=== PATIENT | female | born 1980 | race Caucasian/White ===

== ENCOUNTER 2018-01-10 16:49 | Observation (INO) | payer OTHER ==
[~2018-01-10] VITALS: Ht 167.6 cm; Wt 88.0 kg
[2018-01-10 18:16] LABS: BASOPHILS ABSOLUTE AUTO 0.02 K/mm3 (0.00-0.23); BASOPHILS PERCENT AUTO 0 % (0-2); EOSINOPHILS ABSOLUTE AUTO 0.01 K/mm3 (0.00-0.68); EOSINOPHILS PERCENT AUTO 0 % (0-6); Hematocrit 42.1 % (33.0-51.0); Hemoglobin 13.7 g/dL (11.5-16.0); IMMATURE GRAN PERCENT AUTO 1 % (0-1); LYMPHOCYTES ABSOLUTE AUTO 2.46 K/mm3 (0.84-5.20); LYMPHOCYTES PERCENT AUTO 12 % (21-46); MONOCYTES ABSOLUTE AUTO 0.79 K/mm3 (0.16-1.47); MONOCYTES PERCENT AUTO 4 % (4-13); Mean Corpuscular HGB Conc 32.5 g/dL (31.5-36.5); Mean Corpuscular Volume 95 fL (80-100); Mean Platelet Volume 9.3 fL (9.1-12.4); NEUTROPHILS ABSOLUTE AUTO 16.62 K/mm3 (1.96-9.15); NEUTROPHILS PERCENT AUTO 83 % (41-73); Platelet Count 298 K/mm3 (150-400); RDW Coefficient Variation 13.2 % (11.7-14.2); RDW Standard Deviation 45.8 fL (35.1-46.3); Red Blood Cell Count 4.42 M/mm3 (3.80-5.20)
[2018-01-10] MEDS ORDERED: FLUO10 PO (18:22)
[2018-01-10] MEDS ORDERED: Budeprion Xl300 MG PO (18:22)
[2018-01-10] MEDS ORDERED: PRED20 PO (18:23)
[2018-01-10 18:39] LABS: Alanine Aminotransfer (ALT/SGP 28 U/L (12-78); Albumin, Blood 3.8 g/dL (3.4-5.0); Albumin/Globulin Ratio 1.1 (0.8-1.8); Alk Phos 49 U/L (50-136); Anion Gap 7 mmol/L (6-16); Aspartate Aminotrans (AST/SGOT 20 U/L (12-37); Bilirubin, Total 0.7 mg/dL (0.1-1.0); Blood Urea Nitrogen 10 mg/dL (8-24); Bun/Creatinine Ratio 11.8 (12.0-20.0); CO2, Blood 30 mmol/L (21-32); Calcium, Blood 8.8 mg/dL (8.5-10.1); Chloride, Blood 102 mmol/L (98-108); Creatinine, Blood 0.84 mg/dL (0.40-1.00); Ethanol (Alcohol), Blood, Med <3 mg/dL; Globulin, Blood 3.5 g/dL (2.2-4.0); Glomerular Filtration Rate >60 (60-); Glucose, Blood 76 mg/dL (70-99); Salicylate 2.6 mg/dL (2.8-20.0); Sodium, Blood 139 mmol/L (136-145); Total Protein, Blood 7.3 g/dL (6.4-8.2)
[2018-01-10 18:55] LABS: Acetaminophen, Random <2.0 ug/mL (10.0-30.0)
== END 2018-01-11 20:35 | disposition home or self-care (01) ==
LOC: ER 16:49 → EOR 16:50
PROVIDERS: Emergency Medicine
DX: F30.2 Manic episode, severe with psychotic symptoms (principal); F10.10 Alcohol abuse, uncomplicated; J45.909 Unspecified asthma, uncomplicated; Z79.899 Other long term (current) drug therapy; Z98.890 Other specified postprocedural states
CPT/HCPCS: 36415; 80053; 84443; 85025; 90471; 90714; 94640; 99285; G0378; G0480